=== PATIENT | male | born 1950 | race Caucasian/White ===

== ENCOUNTER → 2016-04-27 | Outpatient (CLI) | payer BC, MEDICARE ==
[2016-04-27 13:03] LABS: Basophils % (A) 1 %; CH 31.4; CHCM 34.3; Eosinophils # (A) 0.1 k/uL (0-0.7); Eosinophils % (A) 2 %; HCT 47.1 % (39.0-53.0); HDW 2.98; HGB 15.5 gm/dL (13.0-17.5); Luc # (Auto) 0.15; Luc % (Auto) 2; Lymphocytes # (A) 2.6 k/uL (1.0-4.8); Lymphocytes % (A) 37 %; MCH 30.4 pg (25.0-35.0); MCV 92.2 fL (80.0-100.0); Mean Platelet Volume 7.6; Monocytes # (A) 0.4 k/uL (0-1.0); Monocytes % (A) 5 %; Neutrophils # (A) 3.8 k/uL (1.3-7.7); Neutrophils % (A) 54 %; RBC 5.11 m/uL (4.30-5.90); RDW 14.3 % (11.5-15.5); WBC (Perox) 7.45
[2016-04-27 13:26] LABS: ALT 60 U/L (21-72); AST 38 U/L (17-59); Alkaline Phosphatase 113 U/L (38-126); Anion Gap 9 mmol/L; Blood Urea Nitrogen 25 mg/dL (9-20); Calcium 9.6 mg/dL (8.4-10.2); Carbon Dioxide 28 mmol/L (22-30); Chloride 104 mmol/L (98-107); Glucose 102 mg/dL (74-99); Non-African American GFR(MDRD) 52 (>60 ml/min/1.73 sqM); Potassium 4.3 mmol/L (3.5-5.1); Sodium 141 mmol/L (137-145); Total Bilirubin 0.6 mg/dL (0.2-1.3); Total Protein 6.8 g/dL (6.3-8.2)
== END | disposition home or self-care (01) ==
LOC: LABWHC1 12:18
PROVIDERS: ATTEND Internal Medicine
DX: R53.1 Weakness (principal); R63.5 Abnormal weight gain
CPT/HCPCS: 36415; 80053; 84439; 84443; 85025

== ENCOUNTER → 2016-05-28 | Outpatient (CLI) | payer BC, MEDICARE ==
--- NOTE | 2016-05-28 17:21 | US ---
EXAMINATION TYPE: US scrotum with doppler. Grayscale and color Doppler Duplex imaging performed of will corrigan scrotum. DATE OF EXAM: 05/28/2016 4:52 PM COMPARISON: No previous CLINICAL HISTORY: N50.819 TESTICULAR PAIN. Intermittent bilateral testicular pain x 6 months EXAM MEASUREMENTS: TESTICLES: Right Testicle: 3.0 x 2.1 x 1.7 cm, slightly heterogeneous Left Testicle: 3.2 x 1.9 x 1.6 cm, slightly heterogeneous EPIDIDYMIS HEAD: Right Epididymis: 0.7 x 1.0 x 1.0 cm Left Epididymis: 0.7 x 0.8 x1.1 cm Doppler performed to assess for testicular vascularity; good bilateral arterial color flow and wavefo ari are seen, unable to obtain venous flow within bilateral testicles. 0.6cm echogenic focus inferior to right testicle Presence of hydroceles: right 1.9cm with internal debris Presence of varicoceles: prominent vessels lateral to left testicle IMPRESSION: There is a mild right-sided hydrocele. There is a 6 mm echogenic focus in the fluid there is probably calcification. No testicular torsion or mass.
== END | disposition home or self-care (01) ==
LOC: RADUSWWP 16:06
PROVIDERS: ATTEND Family Medicine
DX: N43.3 Hydrocele, unspecified (principal)
CPT/HCPCS: 76870; 93975

== ENCOUNTER 2016-06-04 09:43 | Day surgery (SDC) | payer BC, MEDICARE ==
[2016-06-02 10:52] VITALS: BMI 33.5
[~2016-06-04 09:43] MED LIST: LACTATED RINGERS 1,000 ML IV SCH
[2016-06-04 11:03] VITALS: TEMP 97.8
[2016-06-04] MEDS ORDERED: LACTATED RINGERS 1,000 ML IV ONE (11:14)
[2016-06-04] MEDS ORDERED: LIDOCAINE 1% 20 ML VIAL (10MG/ML) FOR IV START INTRADERMA ONE (11:17)
[2016-06-04] MEDS ORDERED: PROPOFOL 10 MG/ML 20 ML VIAL IV ONE (11:21)
[2016-06-04] MEDS ORDERED: LIDOCAINE 1% INJ 10MG/ML (20 ML MDV) ONE (11:21)
--- NOTE | 2016-06-04 11:28 | P.PCN ---
Date of Procedure: 06/04/16 Procedure(s) Performed: BRIEF HISTORY: Patient is a 65-year-old, pleasant, white male, scheduled for an upper endoscopy as a part of evaluation of gastroesophageal reflux symptoms of almost 1 year duration. He has been on Prilosec 20 mg daily and since in symptoms have significantly improved. He scheduled for an upper endoscopy to rule out complicated reflux disease.. PROCEDURE PERFORMED: Esophagogastroduodenoscopy with biopsy. PREOPERATIVE DIAGNOSIS: GERD. IV sedation per anesthesia. PROCEDURE: After informed consent was obtained, the patient was brought into the endoscopy unit. IV sedation was administered by Anesthesia under continuous monitoring. Initially the Olympus GIF-140 video endoscope was inserted into the mouth. Esophagus intubated without any difficulty. It was gradually advanced into the stomach and duodenum and carefully examined. The bulb and the second part of the duodenum appeared normal. The scope at this time was withdrawn to the stomach, adequately insufflated with air, and upon careful examination, mucosa of the antrum, had mild gastritis and biopsies were done from this area. The body, cardia and the fundus appeared normal. The scope was then withdrawn into the esophagus. The GE junction was located at 41 cm from the incisors. The esophagus appeared normal. There were no erosions or ulcerations seen and the patient tolerated the procedure well. IMPRESSION: 1. Mild antral gastritis. 2. No evidence of esophagitis or Lozada's esophagus. RECOMMENDATIONS: The findings of this examination were discussed with the patient as well as his family. He was advised to follow with the biopsy results. He will continue with Prilosec 20 mg daily and follow antireflux measures.
[2016-06-04 11:51] VITALS: BP 131/88; PULSE 82; RESP 18
== END 2016-06-04 12:07 | disposition home or self-care (01) ==
LOC: ORWHC2ENDO 09:43
PROVIDERS: ATTEND Internal Medicine Gastroenterology
DX: K29.50 Unspecified chronic gastritis without bleeding (principal); K21.9 Gastro-esophageal reflux disease without esophagitis; I10 Essential (primary) hypertension; E78.5 Hyperlipidemia, unspecified; E07.9 Disorder of thyroid, unspecified; Z79.82 Long term (current) use of aspirin; Z79.899 Other long term (current) drug therapy
CPT/HCPCS: 88305; 88342; 43239; J2001; J2704

== ENCOUNTER → 2016-08-10 | Outpatient (CLI) | payer BC, MEDICARE ==
--- NOTE | 2016-08-10 17:02 | US ---
EXAMINATION TYPE: US thyroid st tissue head/neck DATE OF EXAM: 08/10/2016 COMPARISON: NONE CLINICAL HISTORY: R22.1 Swelling/Mass/Lump in Neck. GLAND SIZE: Right Lobe: 3.4 x 1.0 x 1.5 cm Overall Parenchyma: mildly heterogeneous Left Lobe: 4.0 x 1.5 x 1.4 cm Overall Parenchyma: mildly heterogeneous Isthmus Thickness: 0.3 cm NODULES RIGHT: # of nodules measured on right: 0 LEFT: # of nodules measured on left: 0 ISTHMUS: # of nodules measured in the isthmus: 0 Bilateral neck scanned, no evidence of lymphadenopathy. Anterior neck scanned where patient feels fullness in the anterior neck. IMPRESSION: Normal thyroid sonogram. No mass seen in the area of concern. No evidence of any adenopathy.
== END | disposition home or self-care (01) ==
LOC: RADUSWWP 16:12
PROVIDERS: ATTEND Family Medicine
DX: R22.1 Localized swelling, mass and lump, neck (principal)
CPT/HCPCS: 76536

== ENCOUNTER → 2016-10-29 | Day surgery (SDC) | payer BC, MEDICARE ==
[2016-10-26 15:13] VITALS: BMI 33.0
[~2016-10-29] MED LIST changes: +ALPRAZolam 0.25 MG TAB PO PRN; +ALPRAZolam 0.5 MG TAB PO PRN; +ASPIRIN 325 MG TAB PO STA; +ATORVASTATIN 80 MG TAB PO STA; +HEPARIN SODIUM 1,000 UN/ML (10ML VL) IV ONE; +HEPARIN SODIUM 1,000 UN/ML (10ML VL) ONE; +IOHEXOL 350 MG/ML 125ML BOTTLE INJ ONE; -LACTATED RINGERS 1,000 ML IV SCH; +LIDOCAINE 2% INJ 20 MG/ML (20 ML MDV) ONE; +LIDOCAINE 2% INJ 20 MG/ML SQ ONE; +MIDAZOLAM 2 MG/2 ML VIAL IV ONE; +MIDAZOLAM 2 MG/2 ML VIAL ONE; +NITROGLYCERIN SL TABS 0.4 MG TAB SUBLINGUAL PRN; +RX INFO: IV CONTRAST WAS GIVEN 1 EACH MISC MISCELLANE PRN; +SODIUM CHLORIDE 0.9% 1,000 ML IV SCH; +SODIUM CHLORIDE 0.9% 1,000 ML in EMPTY BAG 1 BAG IV ONE; +VERAPAMIL 2.5 MG/ML 2 ML AMP ONE
[2016-10-29 10:44] LABS: Basophils % (A) 1 %; CH 31.7; CHCM 35.8; Eosinophils # (A) 0.2 k/uL (0-0.7); Eosinophils % (A) 2 %; HCT 45.1 % (39.0-53.0); HGB 16.2 gm/dL (13.0-17.5); Luc # (Auto) 0.15; Luc % (Auto) 2; Lymphocytes # (A) 2.1 k/uL (1.0-4.8); Lymphocytes % (A) 32 %; MCH 32.1 pg (25.0-35.0); MCHC 35.9 g/dL (31.0-37.0); MCV 89.3 fL (80.0-100.0); Mean Platelet Volume 7.2; Monocytes # (A) 0.3 k/uL (0-1.0); Monocytes % (A) 5 %; Neutrophils # (A) 3.8 k/uL (1.3-7.7); Neutrophils % (A) 58 %; RBC 5.05 m/uL (4.30-5.90); RDW 14.1 % (11.5-15.5); WBC 6.6 k/uL (3.8-10.6); WBC (Perox) 6.54
[2016-10-29 10:46] VITALS: RESP 18; TEMP 98
[2016-10-29] MEDS: VERAPAMIL SYRINGE (5 MG/10 ML) INTRAARTER ONE ×3 (11:39→11:52)
[2016-10-29 16:56] VITALS: BP 142/85; PULSE 62
--- NOTE | 2016-10-30 10:46 | MISC ---
October 29, 2016 RE: Luther Lopez Dear Dr. 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 Maximize medical treatment is recommended and no need for any intervention at this point. I want to thank you for allowing us to participate in his care and please do not hesitate to contact me if questions or concerns. JACQUELINED
--- NOTE | 2016-10-30 10:47 | CC ---
DATE OF SERVICE: 10/29/16 PERFORMING PHYSICIAN: Ham Dykes M.D., network technician. PROCEDURE PERFORMED: 1. Selective right and left coronary angiogram. 2. Left heart catheterization. 3. Left ventriculography. INDICATIONS: This is a pleasant 66 year old gentleman who was experiencing intermittent episodes of chest discomfort concerning for angina. He has very significant family history of coronary artery disease. APPROACH: Right radial artery. COMPLICATIONS: None. LEVEL OF SEDATION: Moderate with a sedation length of 20 minutes. PROCEDURE DESCRIPTION: After obtaining informed consent, the patient was brought to the [facility]. The right radial artery was cannulated using micropuncture technique. The micropuncture wire passed easily. Then, I placed a 6 Yi sheath in the right radial artery. Subsequently I gave the patient 2 mg of Verapamil IA and 3000 units of heparin IV. I did selective right and left coronary angiogram using JR4 and JL3.5 catheters. After that I did left heart catheterization and LV gram using 5 Yi pigtail catheter. The procedure was completed without any complication. SELECTIVE CORONARY ANGIOGRAM: 1. The right coronary artery is a large caliber vessel and it is a dominant vessel. It is angiographically normal. It bifurcates into PDA and PLV branches, both are angiographically normal. 2. The left main is angiographically normal. It bifurcates into the left circumflex and left anterior descending artery. 3. The left circumflex is a large caliber vessel and it was a non-dominant vessel. The proximal circumflex is angiographically normal and gives rise into the first OM branch which seems to be angiographically normal. The mid circ is normal and gives rise into the second OM which seems to be angiographically normal and the circ continues after that as a medium caliber vessel in the AV groove. 4. The left anterior descending coronary artery: The proximal left anterior descending artery is angiographically normal. It gives rise into the first diag which seems to be angiographically normal. The mid LAD has what seems to be myocardial bridging in the mid portion just after the bifurcation of the second diag branch. The LAD distally appeared to be angiographically normal. HEMODYNAMICS: The left ventricular end diastolic pressure was 6 mmHg and no gradient was identified across the aortic valve. Left ventriculography was performed in the MAJOR projection and using a power injection the left ventricular systolic function is normal with EF about 50%. CONCLUSION: 1. Normal and dominant right coronary artery. 2. Normal left main coronary artery. 3. Normal and nondominant left circumflex coronary artery. 4. Myocardial bridging involving the mid LAD. 5. Normal left ventricular end diastolic pressure. 6. Normal left ventricular systolic function. POSTPROCEDURE MANAGEMENT: 1. Maximize medical treatment. 2. Follow-up with the patient. ERIC
== END ==
LOC: CATHCVL 09:51
PROVIDERS: ATTEND Internal Medicine Interventional Cardiology
DX: R07.89 Other chest pain (principal); Z82.49 Family history of ischemic heart disease and other diseases of the circulatory system; E78.5 Hyperlipidemia, unspecified; E03.9 Hypothyroidism, unspecified; Z87.891 Personal history of nicotine dependence; Z79.82 Long term (current) use of aspirin; Z79.899 Other long term (current) drug therapy
CPT/HCPCS: 93458; 85025; 99152; C1894; J2001; J2250; J1644; Q9967

== ENCOUNTER → 2016-12-08 | Outpatient (CLI) | payer BC, MEDICARE ==
--- NOTE | 2016-12-08 08:22 | MR ---
EXAMINATION TYPE: MR brain wo/w con DATE OF EXAM: 12/08/2016 COMPARISON: NONE HISTORY: Dizziness, memory loss CONTRAST: Performed utilizing 10 mL intravenous Gadavist gadolinium contrast. TECHNIQUE: Multiplanar, multiecho imaging on a 3.0 Saniya magnet is performed through the brain. Stud y is performed within 24 hours of arrival to the hospital. The craniovertebral junction is normal. The pituitary is normal. Diffusion-weighted imaging is performed. No abnormal hyperintensity is present to suggest an acute i ntracranial infarct or acute ischemic change. There are scattered punctate areas of hyperintensity on T2 and Inversion Recovery weighted sequences which are non-specific but can be related to microvascular ischemic changes. Ventricles and sulci are appropriate for the patient age. No abnormal enhancement is evident. IMPRESSIONS: 1. Atrophy with periventricular white matter ischemic type changes.
== END | disposition home or self-care (01) ==
LOC: RADMRIMAIN 07:03
PROVIDERS: ATTEND Otolaryngology
DX: G31.9 Degenerative disease of nervous system, unspecified (principal); I67.82 Cerebral ischemia; R90.82 White matter disease, unspecified
CPT/HCPCS: 70553; A9581

== ENCOUNTER → 2017-04-04 | Outpatient (CLI) | payer BC, MEDICARE ==
--- NOTE | 2017-04-04 08:52 | CT ---
EXAMINATION TYPE: CT iac wo con DATE OF EXAM: 04/04/2017 COMPARISON: MRI brain December 08, 2016. CT neck November 29, 2016 HISTORY: Cholesteatoma of attic right ear CT DLP: 142.70 mGycm. Automated Exposure Control for Dose Reduction was Utilized. TECHNIQUE: CT scan of internal auditory canal is performed without contrast, thin cut axial images ar e obtained, coronal reformatted images are also reviewed. FINDINGS: The external auditory canals is patent on the right. There is evidence of prior surgery on the left with soft tissue density deep aspect likely reflecting predominantly postsurgical change tho ugh increasing prominence is noted from prior neck CT current study axial image 44 versus prior study axial image 5 suggesting cerumen deposit, correlate clinically. Mastoid air cells on the left have been predominantly surgically resected. There is opacification an d sclerosis on the right redemonstrated. Suspect chronic mastoiditis or possibly acute on chronic mas toiditis. The middle ear ossicles remain nonvisualized on the left suspected surgically resected. There is surr ounding soft tissue density on the right now identified are prominent from prior neck CT. Blunting of the scutum is seen. CT findings are consistent with middle ear infection or cholesteatoma as suspect ed clinically. The cochlea and the semicircular canals are symmetric and unremarkable. Vestibular aqueduct and inte rnal carotid canal appear unremarkable. Temporomandibular joints are maintained bilaterally. Visualized paranasal sinuses are grossly clear. Visualized portion brain parenchyma is felt within normal limits. IMPRESSION: CT findings support diagnosis of right middle ear infection or cholesteatoma as detailed above.
== END | disposition home or self-care (01) ==
LOC: RADCTMAIN 07:20
PROVIDERS: ATTEND Otolaryngology Otology & Neurotology
DX: H71.01 Cholesteatoma of attic, right ear (principal)
CPT/HCPCS: 70480

== ENCOUNTER 2017-06-22 22:27 | Emergency (ER) | payer BC, MEDICARE ==
[2017-06-22 22:42] VITALS: RESP 18
[2017-06-22] MEDS ORDERED: KETOROLAC 30 MG/ML 1 ML VIAL IVP STA (23:40)
[2017-06-22] MEDS ORDERED: IPRATROPIUM-ALBUTEROL 3 ML NEB INHALATION STA (23:40)
[2017-06-22] MEDS ORDERED: methylPREDNISolone SOD SUCCI 125 MG/2 ML VIAL IV STA (23:40)
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
[2017-06-23 00:09] LABS: Basophils # (A) 0.1 k/uL (0-0.2); Basophils % (A) 1 %; Eosinophils # (A) 0.1 k/uL (0-0.7); Eosinophils % (A) 1 %; HCT 40.9 % (39.0-53.0); HGB 14.6 gm/dL (13.0-17.5); Lymphocytes # (A) 1.3 k/uL (1.0-4.8); Lymphocytes % (A) 15 %; MCH 30.9 pg (25.0-35.0); MCHC 35.7 g/dL (31.0-37.0); MCV 86.6 fL (80.0-100.0); Mean Platelet Volume 8.1; Monocytes # (A) 0.7 k/uL (0-1.0); Monocytes % (A) 8 %; Neutrophils # (A) 6.5 k/uL (1.3-7.7); Neutrophils % (A) 73 %; Platelet Count 220 k/uL (150-450); RBC 4.72 m/uL (4.30-5.90); RDW 13.3 % (11.5-15.5); WBC 8.9 k/uL (3.8-10.6)
[2017-06-23 00:14] LABS: Calcium 8.6 mg/dL (8.4-10.2); Potassium 4.1 mmol/L (3.5-5.1)
--- NOTE | 2017-06-23 00:42 | XR ---
EXAMINATION TYPE: XR chest 2V DATE OF EXAM: 06/23/2017 COMPARISON: 10/15/2016 HISTORY: Cough and congestion TECHNIQUE: Frontal and lateral views of the chest are obtained. FINDINGS: Heart and mediastinum are normal. Lungs are clear of consolidation. There is no pleural ef fusion. Bony thorax is intact. IMPRESSION: No active cardiopulmonary disease. Normal heart. No change.
[2017-06-23 00:49] VITALS: BP 137/63; PULSE 100
[2017-06-23] MEDS ORDERED: LEVOFLOXACIN 750 MG TAB PO STA (00:50)
[2017-06-23 00:56] VITALS: TEMP 99.7
== END 2017-06-23 00:56 | disposition home or self-care (01) ==
LOC: EC 22:27
DX: J18.9 Pneumonia, unspecified organism (principal); J32.9 Chronic sinusitis, unspecified; I10 Essential (primary) hypertension; I45.10 Unspecified right bundle-branch block; E07.9 Disorder of thyroid, unspecified; E78.5 Hyperlipidemia, unspecified; M19.90 Unspecified osteoarthritis, unspecified site; Z87.891 Personal history of nicotine dependence; Z79.82 Long term (current) use of aspirin; Z79.899 Other long term (current) drug therapy; Z98.890 Other specified postprocedural states
CPT/HCPCS: 36415; 94640 ×2; 93005; 80048; 85025; 87502; 71046; 99284; 96374; 96375; J2930; J1885

== ENCOUNTER → 2017-08-26 | Outpatient (CLI) | payer BC, MEDICARE ==
--- NOTE | 2017-08-26 08:12 | US ---
EXAMINATION TYPE: US duplex aorta DATE OF EXAM: 08/26/2017 COMPARISON: NONE CLINICAL HISTORY: Z13.6 Encounter for screening for cardiovascular d. Screening EXAM MEASUREMENTS: Abdominal Aorta: Proximal: 2.2 x 2.4cm Mid: 1.6 x 2.0cm Distal: 1.5 x 1.7cm Bifurcation: RT: 0.9 x 0.8cm LT: 0.9 x 0.7cm Visualized portions show calcifications. No evidence of AAA at this time within visualized portions IMPRESSION: 1. Abdominal aorta screening negative for aneurysm.
== END | disposition home or self-care (01) ==
LOC: RADUSWWP 06:50 → EEVIPCON 07:00
PROVIDERS: ATTEND Family Medicine
DX: Z13.6 Encounter for screening for cardiovascular disorders (principal)
CPT/HCPCS: 93979

== ENCOUNTER → 2017-12-03 | Outpatient (CLI) | payer BC, MEDICARE ==
[2017-12-03 10:13] LABS: Cholesterol 131 mg/dL (<200); HDL Cholesterol 39 mg/dL (40-60); LDL Cholesterol,Calculated 53 mg/dL (0-99); Triglycerides 195 mg/dL (<150)
== END | disposition home or self-care (01) ==
LOC: LABWHC1 09:17
PROVIDERS: ATTEND Nurse Practitioner Adult Health
DX: E78.5 Hyperlipidemia, unspecified (principal)
CPT/HCPCS: 36415; 80061

== ENCOUNTER 2019-01-17 16:37 | Observation (INO) | payer BC, MEDICARE ==
[2019-01-17 17:17] LABS: Basophils # (A) 0.1 k/uL (0-0.2); Basophils % (A) 1 %; Eosinophils # (A) 0.3 k/uL (0-0.7); Eosinophils % (A) 3 %; HCT 43.1 % (39.0-53.0); HGB 14.5 gm/dL (13.0-17.5); Lymphocytes # (A) 2.5 k/uL (1.0-4.8); Lymphocytes % (A) 31 %; MCH 30.4 pg (25.0-35.0); MCHC 33.6 g/dL (31.0-37.0); MCV 90.4 fL (80.0-100.0); Mean Platelet Volume 7.2; Monocytes # (A) 0.5 k/uL (0-1.0); Monocytes % (A) 6 %; Neutrophils # (A) 4.6 k/uL (1.3-7.7); Neutrophils % (A) 57 %; Platelet Count 230 k/uL (150-450); RBC 4.77 m/uL (4.30-5.90); RDW 13.6 % (11.5-15.5); WBC 8.1 k/uL (3.8-10.6)
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
[2019-01-17 17:33] LABS: Calcium 9.3 mg/dL (8.4-10.2); Magnesium 1.8 mg/dL (1.6-2.3); Potassium 4.3 mmol/L (3.5-5.1); Total Bilirubin 0.6 mg/dL (0.2-1.3); Total Protein 6.7 g/dL (6.3-8.2)
[2019-01-17 17:39] LABS: INR 0.9 (<1.2); Partial Thromboplastin Time 23.4 sec (22.0-30.0); Prothrombin Time 9.5 sec (9.0-12.0)
--- NOTE | 2019-01-17 18:15 | XR ---
EXAMINATION TYPE: XR chest 2V DATE OF EXAM: 01/17/2019 COMPARISON: 02/10/2018 HISTORY: Chest pain TECHNIQUE: Frontal and lateral views of the chest are obtained. FINDINGS: Heart and mediastinum are normal. Lungs are clear. Diaphragm is normal. Bony thorax is inta ct. There are chest leads. IMPRESSION: No active cardiopulmonary disease. Normal heart. No change.
[2019-01-17] MEDS ORDERED: ASPIRIN 325 MG TAB PO STA (18:46)
[2019-01-17] MEDS ORDERED: MORPHINE SULFATE 2 MG/ML SYRINGE IVP STA (18:47)
[2019-01-17] MEDS ORDERED: ONDANSETRON 4 MG/2 ML VIAL IVP PRN (22:00)
[2019-01-17] MEDS ORDERED: MORPHINE SULFATE 4 MG/ML SYRINGE IV PRN (22:00)
[2019-01-17] MEDS ORDERED: NALOXONE 0.4 MG/ML 1 ML VIAL IV PRN (22:00)
[2019-01-17 22:39] VITALS: RESP 18
[2019-01-18] MEDS ORDERED: ATORVASTATIN 20 MG TAB PO SCH (00:15)
[2019-01-18 06:41] LABS: Glucose,Whole Blood 113 mg/dL (75-99)
[2019-01-18] MEDS ORDERED: MAG HYDROX/AL HYDROX/SIMETH 30 ML, HYOSCYAMINE ELIXIR 10 ML, LIDOCAINE VISCOUS 2% 10 ML PO ONE ×3 (09:00)
[2019-01-18] MEDS ORDERED: ASPIRIN 325 MG TAB PO SCH (09:00)
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
[2019-01-18 11:03] VITALS: BP 129/83; PULSE 69; TEMP 97.5
[2019-01-18] MEDS ORDERED: metFORMIN 500 MG TAB PO SCH (11:30)
[2019-01-18] MEDS ORDERED: MULTIVITAMINS, THERA 1 EACH TAB PO SCH (11:30)
[2019-01-18] MEDS ORDERED: LEVOTHYROXINE 50 MCG TAB PO SCH (11:30)
[2019-01-18 11:40] LABS: Glucose,Whole Blood 94 mg/dL (75-99)
[2019-01-18] MEDS ORDERED: ACETAMINOPHEN TAB 325 MG TAB PO PRN (12:00)
--- NOTE | 2019-01-18 12:09 | ECHOF ---
Referral Reason:cp MEASUREMENTS -------- HEIGHT: 162.6 cm WEIGHT: 98.4 kg BP: 121/74 IVSd: 1.2 cm (0.6 - 1.1) LVIDd: 4.4 cm (3.9 - 5.3) LVPWd: 1.0 cm (0.6 - 1.1) IVSs: 1.3 cm LVIDs: 3.8 cm LVPWs: 1.2 cm LA Diam: 3.4 cm (2.7 - 3.8) LAESV Index (A-L): 14.51 ml/m Ao Diam: 3.7 cm (2.0 - 3.7) EPSS: 0.5 cm MV E Reji: 0.53 m/s MV DecT: 212 ms MV A Reji: 0.73 m/s MV E/A Ratio: 0.73 RAP: 5.00 mmHg RVSP: 13.38 mmHg MV EF SLOPE: 85.72 mm/s (70 - 150) MV EXCURSION: 13.88 mm (> 18.000) FINDINGS -------- Sinus rhythm. This was a technically good study. LV size, wall thickness and systolic function are normal, with an EF greater than 55%. The left elle tricular size is normal. The right ventricle is normal in size. The left atrial size is normal. Normal LA size by volume 22+/-6 ml/m2. The right atrial size is normal. The aortic valve is trileaflet, and appears structurally normal. No aortic stenosis or regurgitation. Mild mitral annular calcification present. Mild mitral regurgitation is present. No regurgitation noted Right ventricular systolic pressure is normal at < 35 mmHg. There is no ev idence of pulmonary hypertension. There is no pulmonic regurgitation present. The aortic root size is normal. There is no pericardial effusion. CONCLUSIONS -------- 1. Sinus rhythm. 2. This was a technically good study. 3. LV size, wall thickness and systolic function are normal, with an EF greater than 55%. 4. The left ventricular size is normal. 5. The right ventricle is normal in size. 6. The left atrial size is normal. 7. Normal LA size by volume 22+/-6 ml/m2. 8. The right atrial size is normal. 9. The aortic valve is trileaflet, and appears structurally normal. No aortic stenosis or regurgitati on. 10. Mild mitral annular calcification present. 11. Mild mitral regurgitation is present. 12. No regurgitation noted 13. Right ventricular systolic pressure is normal at < 35 mmHg. 14. There is no evidence of pulmonary hypertension. 15. There is no pulmonic regurgitation present. 16. The aortic root size is normal. 17. There is no pericardial effusion. PATIENT FINANCIAL SERVICES MANAGER: Kassie Rob RDCS
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
[2019-01-19] MEDS ORDERED: ASPIRIN 81 MG PO SCH (09:00)
--- NOTE | 2019-01-19 20:02 | P.DS ---
Providers Date of admission: 01/17/19 22:02 Expected date of discharge: 01/18/19 Attending physician: Ganga Porter Consults: 01/17/19 22:00 Consult Physician Routine Consulting Provider: Ham Dykes Consult Reason/Comments: CP Do you want consulting provider notified?: Yes Primary care physician: Mega Ba [facility] Course: Chief Complaint: Chest Pain History of presenting complaint: This is a 68-year-old patient of Dr. Mega Ba. Chronic stable medical conditions include GERD, hyperlipidemia, osteoarthritis, BPH, hypothyroid. Patient is also had several left ear surgeries including particular graft from his left arm to make her left eardrum. 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 For last 2 days patient been having constant left anterior chest wall pain pressure. She decided to go to work. 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 Since the pain persisted he decided to come into the ER. There is some discomfort in the left arm 2. Does slight dizziness. No perspiration. No shortness of breath. No calf pain or swelling. No prior cardiac history.recent cardiac catheterization was normal with nonobstructive disease. patient chest pain was felt musculoskeletal. consultation: Dr. Jd Armando from cardiology Physical examination: VITAL SIGNS:97.5, 69, 18, 129/83, 98% room air GENERAL:sitting up comfortable]. EYES: Pupils equal. Conjunctiva normal. HEENT: External appearance of nose and ears normal, oral cavity grossly normal hearing aids. NECK: JVD not raised; masses not palpable. HEART: First and second heart sounds are normal; no edema. LUNGS:[ Respiratory rate normal; slightly decreased breath sound. ABDOMEN: Soft, nontender, liver spleen not palpable, no masses palpable. PSYCH: Alert and oriented x3; mood and affect normal. MUSCULAR skeletal: Some reproducible pain in the left anterior chest wall near the costochondral junction INVESTIGATIONS, reviewed in the clinical context: White count 8.1 hemoglobin 14.5 platelets 2:30 progression 4.3 crit 1.2 to Troponin I 3 negative proBNP 51 EKG tracing personally reviewed by me-normal sinus rhythm Chest x-ray film personally reviewed by me-borderline cardiomegaly, lung bowers clear (2-D echo-EF greater than 55%. Assessment: -Left anterior chest wall, pain Most likely costochondral pain. Recent cardiac catheterization showing nonobstructive disease. -GERD -Hyperlipidemia -Primary osteoarthritis -BPH -Hypothyroid -Hearing disorder disposition: Home Patient Condition at Discharge: Stable Plan - Discharge Summary New Discharge Prescriptions: Continue Multivitamin [Men's Multi-Vitamin] 1 tab PO DAILY Omeprazole 40 mg PO DAILY Levothyroxine Sodium [Synthroid] 50 mcg PO DAILY Atorvastatin [Lipitor] 20 mg PO HS Aspirin [Adult Low Dose Aspirin EC] 81 mg PO DAILY metFORMIN HCL [Glucophage] 500 mg PO BID Discharge Medication List Multivitamin [Men's Multi-Vitamin] 1 tab PO DAILY 04/11/15 [History] Omeprazole 40 mg PO DAILY 06/02/16 [History] Levothyroxine Sodium [Synthroid] 50 mcg PO DAILY 06/04/16 [History] Aspirin [Adult Low Dose Aspirin EC] 81 mg PO DAILY 10/26/16 [History] Atorvastatin [Lipitor] 20 mg PO HS 10/26/16 [History] metFORMIN HCL [Glucophage] 500 mg PO BID 01/17/19 [History] Follow up Appointment(s)/Referral(s): Ham Dykes MD [STAFF PHYSICIAN] - 01/24/19 3:45 pm Mega Ba MD [Primary Care Provider] - 01/25/19 10:15 am Patient Instructions/Handouts: Chest Pain (DC) Activity/Diet/Wound Care/Special Instructions: Return to work 01/19/19 with no restrictions. Discharge Disposition: HOME SELF-CARE
== END 2019-01-18 14:41 | disposition home or self-care (01) ==
LOC: EC 16:37 → 1SOBS 22:02
PROVIDERS: ADMIT Hospitalist; ATTEND Hospitalist
DX: R07.89 Other chest pain (principal); R07.2 Precordial pain; R05 Cough; K21.9 Gastro-esophageal reflux disease without esophagitis; E78.5 Hyperlipidemia, unspecified; M19.91 Primary osteoarthritis, unspecified site; E11.9 Type 2 diabetes mellitus without complications; N40.0 Benign prostatic hyperplasia without lower urinary tract symptoms; E03.9 Hypothyroidism, unspecified; H91.90 Unspecified hearing loss, unspecified ear; Z94.89 Other transplanted organ and tissue status; Z87.891 Personal history of nicotine dependence; Z87.01 Personal history of pneumonia (recurrent); Z87.828 Personal history of other (healed) physical injury and trauma; E66.9 Obesity, unspecified; Z68.30 Body mass index [BMI] 30.0-30.9, adult; Z79.890 Hormone replacement therapy; Z79.82 Long term (current) use of aspirin; Z79.899 Other long term (current) drug therapy; Z79.84 Long term (current) use of oral hypoglycemic drugs; Z82.49 Family history of ischemic heart disease and other diseases of the circulatory system; Z83.3 Family history of diabetes mellitus; Z80.9 Family history of malignant neoplasm, unspecified
CPT/HCPCS: 93005 ×2; 96374; 99285; 36415; 93306; 83880; 80053; 83690; 83735; 84484 ×2; 85025; 85610; 85730; 71046; G0378 ×2; J2270

== ENCOUNTER → 2019-12-31 | Outpatient (CLI) | payer BC, MEDICARE ==
--- NOTE | 2019-12-31 17:02 | US ---
EXAMINATION TYPE: US kidneys/renal and bladder DATE OF EXAM: 12/31/2019 COMPARISON: NONE CLINICAL HISTORY: 69-year-old male R31.9 Hematuria. Pt states on/off gross hematuria, blood in semen as well TECHNIQUE: Multiple sonographic images of the kidneys and bladder are obtained. FINDINGS: EXAM MEASUREMENTS: Right Kidney: 10.8 x 5.1 x 5.4 cm Left Kidney: 9.5 x 5.2 x 5.3 cm Right Kidney: Appeared wnl Left Kidney: Appeared wnl Bladder: wnl Bilateral Jets seen: Yes Normal Post Void Residual: Yes, 28 ml IMPRESSION: 1. No hydronephrosis. 2. Postvoid bladder volumes increased at 28 mL but still falls within acceptable limits (<50 mL).
== END | disposition home or self-care (01) ==
LOC: RADUSWWP 13:13
PROVIDERS: ATTEND Nurse Practitioner Adult Health
DX: R31.9 Hematuria, unspecified (principal)
CPT/HCPCS: 76770

== ENCOUNTER 2020-04-07 10:48 | Day surgery (SDC) | payer BC, MEDICARE ==
[2020-04-02 15:55] VITALS: BMI 31.4
[~2020-04-07 10:48] MED LIST changes: -HEPARIN SODIUM 1,000 UN/ML (10ML VL) IV ONE; -HEPARIN SODIUM 1,000 UN/ML (10ML VL) ONE; +HEPARIN SODIUM,PORCINE 10,000 UNIT in SODIUM CHLORIDE 0.9% 1,000 ML IRRIGATION PRN; +HEPARIN SODIUM,PORCINE 2,500 UNIT in SODIUM CHLORIDE 0.9% 250 ML IRRIGATION PRN; -IOHEXOL 350 MG/ML 125ML BOTTLE INJ ONE; -LIDOCAINE 2% INJ 20 MG/ML (20 ML MDV) ONE; -LIDOCAINE 2% INJ 20 MG/ML SQ ONE; -MIDAZOLAM 2 MG/2 ML VIAL IV ONE; -MIDAZOLAM 2 MG/2 ML VIAL ONE; -RX INFO: IV CONTRAST WAS GIVEN 1 EACH MISC MISCELLANE PRN; -SODIUM CHLORIDE 0.9% 1,000 ML IV SCH; -VERAPAMIL 2.5 MG/ML 2 ML AMP ONE
[2020-04-07 11:11] LABS: Glucose,Whole Blood 100 mg/dL (75-99)
[2020-04-07 11:16] VITALS: TEMP 98.3
[2020-04-07 11:36] LABS: Basophils # (A) 0.1 k/uL (0-0.2); Basophils % (A) 1 %; Eosinophils # (A) 0.2 k/uL (0-0.7); Eosinophils % (A) 2 %; HGB 15.7 gm/dL (13.0-17.5); Lymphocytes # (A) 2.7 k/uL (1.0-4.8); Lymphocytes % (A) 35 %; MCHC 34.8 g/dL (31.0-37.0); MCV 89.2 fL (80.0-100.0); Mean Platelet Volume 7.8; Monocytes # (A) 0.3 k/uL (0-1.0); Monocytes % (A) 4 %; Neutrophils # (A) 4.3 k/uL (1.3-7.7); Neutrophils % (A) 56 %; Platelet Count 204 k/uL (150-450); RBC 5.05 m/uL (4.30-5.90); RDW 13.6 % (11.5-15.5); WBC 7.6 k/uL (3.8-10.6)
[2020-04-07 11:37] LABS: Calcium 9.4 mg/dL (8.4-10.2); Potassium 4.4 mmol/L (3.5-5.1)
[2020-04-07] MEDS ORDERED: VERAPAMIL 2.5 MG/ML 2 ML AMP ONE (11:45)
[2020-04-07] MEDS ORDERED: LIDOCAINE 1% INJ 10MG/ML (20 ML MDV) ONE (11:46)
[2020-04-07] MEDS ORDERED: MIDAZOLAM 2 MG/2 ML VIAL IVP ONE (12:08)
[2020-04-07] MEDS ORDERED: LIDOCAINE 1% INJ 10MG/ML (20 ML MDV) SQ ONE (12:08)
[2020-04-07] MEDS ORDERED: HEPARIN SODIUM 1,000 UN/ML (10ML VL) ONE (12:09)
[2020-04-07] MEDS ORDERED: HEPARIN SODIUM 1,000 UN/ML (10ML VL) IV ONE (12:10)
[2020-04-07] MEDS ORDERED: VERAPAMIL SYRINGE (5 MG/10 ML) INTRAARTER ONE ×2 (12:10→12:15)
[2020-04-07] MEDS ORDERED: IOPAMIDOL-370 125ML BTL INJ ONE (12:17)
[2020-04-07] MEDS ORDERED: RX INFO: IV CONTRAST WAS GIVEN 1 EACH MISC MISCELLANE PRN (12:23)
[2020-04-07] MEDS ORDERED: SODIUM CHLORIDE 0.9% 1,000 ML IV SCH (12:30)
--- NOTE | 2020-04-07 12:55 | CC ---
CARDIAC CATHETERIZATION REPORT DATE OF SERVICE: April 07, 2020 PERFORMING PHYSICIAN: Ham Dykes MD. PROCEDURE PERFORMED: 1. Selective right and left coronary angiogram. 2. Left heart catheterization. INDICATION: This is a 69-year-old gentleman with hypertension and dyslipidemia who was experiencing symptoms of chest discomfort and underwent myocardial perfusion imaging stress test and that revealed an anterior ischemia and because of that, a heart catheterization was advised. APPROACH: Right radial artery. COMPLICATION: None. LEVEL OF SEDATION: Moderate with sedation length of 14 minutes. PROCEDURE DESCRIPTION: After obtaining an informed consent, the patient was brought to the cardiac process laboratory specialist. The right radial artery was cannulated using micropuncture technique, the micropuncture wire passed easily then I placed a 6-Armenian sheath at the right radial artery. I did give the patient 2 mg of verapamil IA and 10,000 units of heparin IV. Selective right and left coronary angiogram performed with JR4 and JL3.5 catheters. Left heart catheterization was performed using the JR4 catheter which crossed the aortic valve then I did pullback across the valve. The procedure was completed without any complication. SELECTIVE CORONARY ANGIOGRAM: 1. The right coronary artery is a large caliber vessel. It is a dominant vessel and appeared to be angiographically normal. Distally bifurcates into PDA and PLV branches, both appeared to be angiographically normal. 2. The left main is angiographically normal. It bifurcates into LCX and LAD. 3. The LCX is a large caliber vessel. It is a nondominant vessel. The LCX is angiographically normal. In the proximal portion, it gives rise into a large OM branch which appeared to be angiographically normal. 4. The LAD: The proximal LAD appeared to be angiographically normal. The mid LAD has mild disease only and the LAD by the apex has a lesion appeared to be in the range of 60%. The LAD gives rise into first and second diagonal branches, both appear to be angiographically normal. HEMODYNAMICS: The LVEDP was about 4-6 mmHg without significant gradient across aortic valve. CONCLUSION: 1. Mild to moderate nonobstructive coronary artery disease. 2. Normal LVEDP. POSTPROCEDURE MANAGEMENT: 1. Medical treatment. 2. Follow up with the patient. MMODL / IJN: [id number] /
[2020-04-07 15:32] VITALS: BP 144/98; PULSE 75; RESP 18
== END 2020-04-07 17:40 | disposition home or self-care (01) ==
LOC: CATHCVL 10:48
PROVIDERS: ATTEND Internal Medicine Interventional Cardiology
DX: I25.110 Atherosclerotic heart disease of native coronary artery with unstable angina pectoris (principal); R94.39 Abnormal result of other cardiovascular function study; R07.89 Other chest pain; I10 Essential (primary) hypertension; E78.5 Hyperlipidemia, unspecified; E03.9 Hypothyroidism, unspecified; E78.00 Pure hypercholesterolemia, unspecified; E11.9 Type 2 diabetes mellitus without complications; I65.23 Occlusion and stenosis of bilateral carotid arteries; Z79.82 Long term (current) use of aspirin; Z79.899 Other long term (current) drug therapy; Z79.890 Hormone replacement therapy; Z79.84 Long term (current) use of oral hypoglycemic drugs; Z87.891 Personal history of nicotine dependence; Z82.49 Family history of ischemic heart disease and other diseases of the circulatory system
CPT/HCPCS: 93458; 80048; 85025; C1769; C1894; J2250; J2001; J1644; Q9967

== ENCOUNTER → 2020-04-21 | Outpatient (CLI) | payer BC, MEDICARE ==
--- NOTE | 2020-04-22 12:44 | US ---
EXAMINATION TYPE: US prostate transrectal DATE OF EXAM: 04/21/2020 COMPARISON: NONE CLINICAL HISTORY: N40.0 BPH elevated. No rectal exam done at office, nocturia, hematuria when startin g to void then stops. This examination was performed using the transrectal probe. EXAM MEASUREMENTS: Gland Size: 3.5 x 4.3 x 2.9cm Volume: 22.5ml Predicted PSA: 2.7 Actual PSA (if available):0.5 Calcified central zone, normal appearing gland size. Hypoechoic area noted within peripheral zone ne ar apex = 0.9 x 0.6 x 0.4cm, no increased vascularity seen. IMPRESSION: 1. There is a 0.9 x 0.6 x 0.4 cm hypoechoic area in the left peripheral zone. Additional workup for p ossible prostate cancer is recommended Predicted PSA = volume x 0.12 ng/ml Calculated Volume = 0.5236 x L x W x H
== END | disposition home or self-care (01) ==
LOC: RADUSWWP 10:11 → EEVIPCON 04-28 09:00
PROVIDERS: ATTEND Family Medicine
DX: R93.89 Abnormal findings on diagnostic imaging of other specified body structures (principal)
CPT/HCPCS: 76872

== ENCOUNTER 2023-02-28 12:49 | Emergency (ER) | payer MEDICARE ==
[2023-02-28 13:00] VITALS: BP 135/88; PULSE 88; RESP 16; TEMP 97.7
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
--- NOTE | 2023-02-28 15:05 | XR ---
EXAMINATION TYPE: XR chest 2V DATE OF EXAM: 02/28/2023 COMPARISON: 08/24/2021 HISTORY: 72-year-old male with difficulty breathing, shortness of breath TECHNIQUE: PA and lateral views FINDINGS: The cardiomediastinal silhouette, aorta, and pulmonary vasculature are within normal limits. Left-jah ed nipple shadow. Otherwise, lungs and pleural spaces are clear. IMPRESSION: No acute cardiopulmonary process.
== END 2023-02-28 15:18 | disposition home or self-care (01) ==
LOC: EC 12:49
DX: J11.1 Influenza due to unidentified influenza virus with other respiratory manifestations (principal); K21.9 Gastro-esophageal reflux disease without esophagitis; E78.5 Hyperlipidemia, unspecified; M19.90 Unspecified osteoarthritis, unspecified site; E07.9 Disorder of thyroid, unspecified; Z87.891 Personal history of nicotine dependence; Z79.890 Hormone replacement therapy; Z79.1 Long term (current) use of non-steroidal anti-inflammatories (NSAID); Z79.82 Long term (current) use of aspirin; Z79.84 Long term (current) use of oral hypoglycemic drugs; Z79.899 Other long term (current) drug therapy; Z20.822 Contact with and (suspected) exposure to COVID-19
CPT/HCPCS: 71046; 87636; 99283

== ENCOUNTER 2023-08-07 11:10 | Emergency (ER) | payer MEDICARE ==
--- NOTE | 2023-08-07 11:39 | XR ---
EXAMINATION TYPE: XR chest 2V DATE OF EXAM: 08/07/2023 COMPARISON: 02/28/2023 HISTORY: Cough TECHNIQUE: Frontal and lateral views of the chest are obtained. FINDINGS: There is a subtle small infiltrate in the left lingula suspicious for developing pneumonia. There is no pleural effusion or pneumothorax. The heart and pulmonary vasculature are normal. The osseous structures are intact. IMPRESSION: Possible pneumonia developing in the lingula. Short-term follow-up is recommended.
[2023-08-07 11:45] VITALS: RESP 18
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
[2023-08-07 14:58] VITALS: BP 142/77; PULSE 81; TEMP 98.9
== END 2023-08-07 14:39 | disposition home or self-care (01) ==
LOC: EC 11:10
DX: H66.91 Otitis media, unspecified, right ear (principal); Z87.891 Personal history of nicotine dependence
CPT/HCPCS: 71046; 87636; 99283

== ENCOUNTER → 2023-08-23 | Outpatient (CLI) | payer MEDICARE ==
[2023-08-23 11:19] LABS: Basophils # (A) 0.1 k/uL (0-0.2); Basophils % (A) 1 %; Eosinophils # (A) 0.2 k/uL (0-0.7); Eosinophils % (A) 2 %; HCT 43.6 % (39.0-53.0); Lymphocytes # (A) 2.6 k/uL (1.0-4.8); Lymphocytes % (A) 35 %; MCH 30.3 pg (25.0-35.0); MCHC 32.2 g/dL (31.0-37.0); MCV 94.3 fL (80.0-100.0); Mean Platelet Volume 8.2; Monocytes # (A) 0.4 k/uL (0-1.0); Monocytes % (A) 6 %; Neutrophils # (A) 3.9 k/uL (1.3-7.7); Neutrophils % (A) 54 %; Platelet Count 408 k/uL (150-450); RBC 4.63 m/uL (4.30-5.90); WBC 7.3 k/uL (3.8-10.6)
--- NOTE | 2023-08-23 12:22 | CT ---
EXAMINATION TYPE: CT abdomen pelvis wo con DATE OF EXAM: 08/23/2023 COMPARISON: 06/19/2021 HISTORY: LLQ pain CT DLP: 1169 mGycm Examination of the solid and hollow viscera is limited given the lack of contrast. FINDINGS: LUNG BASES: No evidence for nodule. No evidence for infiltrate. Multiple nodular densities seen at th e lung bases. The nonemergent CT of the chest is recommended for further evaluation. LIVER/GB: The gallbladder is unremarkable. No space-occupying hepatic lesion. PANCREAS: No pancreatic mass identified. No inflammatory process seen. SPLEEN: No evidence for splenomegaly. No intrasplenic lesions seen. ADRENALS: No adrenal nodules identified. No evidence for thickening. KIDNEYS: No evidence for renal mass. No nephrolithiasis. No hydronephrosis. BOWEL: Appendix has a normal appearance. No evidence of bowel obstruction. No inflammatory process. M ild fecal stasis. Lymph nodes: No evidence for adenopathy greater than 1 cm. Abdominal aorta: Atheromatous changes seen. No evidence for aneurysm. Genital organs: No significant abnormality. Other: Degenerative changes lumbar spine. IMPRESSION: 1. No acute process seen to account for the patient's symptoms.
[2023-08-23 14:38] LABS: ALT 33 U/L (10-49); AST 32 U/L (14-35); Albumin 4.1 g/dL (3.8-4.9); Albumin/Globulin Ratio 1.78 Ratio (1.60-3.17); Alkaline Phosphatase 115 U/L (41-126); BUN/Creat Ratio 17.62 Ratio (12.00-20.00); Blood Urea Nitrogen 22.9 mg/dL (9.0-27.0); Calcium 9.9 mg/dL (8.7-10.3); Carbon Dioxide 25.1 mmol/L (21.6-31.8); Chloride 101 mmol/L (96-109); Globulin 2.3 g/dL (1.6-3.3); Glucose 118 mg/dL (70-110); Sodium 139 mmol/L (135-145); Total Bilirubin 0.5 mg/dL (0.3-1.2); Total Protein 6.4 g/dL (6.2-8.2)
== END | disposition home or self-care (01) ==
LOC: RADCTMAIN 09:58
PROVIDERS: ATTEND Family Medicine
DX: R10.32 Left lower quadrant pain (principal); J18.9 Pneumonia, unspecified organism
CPT/HCPCS: 36415; 74176; 80053; 85025; 86738

== ENCOUNTER → 2023-08-26 | Outpatient (CLI) | payer MEDICARE ==
--- NOTE | 2023-08-26 16:56 | CT ---
EXAMINATION TYPE: CT chest wo con DATE OF EXAM: 08/26/2023 COMPARISON: 516 HISTORY: cough CT DLP: 486.[address] of the chest was performed with lung and mediastinal window settings submitted. The la ck of contrast limits evaluation of the vascular, mediastinal and parenchymal structures including th e upper abdomen. LUNGS: Multiple scattered pulmonary nodules identified measuring up to 2.7 cm some of which demonstra te a more infiltrate-like appearance. While the findings may reflect postinflammatory/inflammatory ch tyrell underlying metastatic disease is not excluded. Strict clinical correlation is advised as well as appropriate therapeutic intervention short-term follow-up in 8-12 weeks. If abnormalities persist PE T/CT is recommended to exclude malignancy. No evidence of pleural effusion or volume loss. MEDIASTINUM/ALEJANDRINA: Thoracic aorta is of normal caliber with limited evaluation given lack of contrast . The heart is not enlarged. No evidence for mediastinal mass. No lymph nodes greater than 1cm. UPPER ABDOMEN: No significant abnormality is seen. OTHER: No significant other abnormality. IMPRESSION: 1. Findings may reflect postinflammatory/inflammatory change however underlying metastatic disease i s not excluded. Strict clinical correlation is advised as well as appropriate therapeutic interventio n with short-term follow-up in 8-12 weeks. If abnormalities persist PET/CT is recommended to exclude malignancy.
== END | disposition home or self-care (01) ==
LOC: RADCTMAIN 15:38
PROVIDERS: ATTEND Family Medicine
DX: R91.8 Other nonspecific abnormal finding of lung field (principal)
CPT/HCPCS: 71250

== ENCOUNTER → 2023-09-02 | Outpatient (CLI) | payer MEDICARE ==
--- NOTE | 2023-09-04 16:39 | PE ---
EXAMINATION TYPE: PET CT fusion skull to thigh DATE OF EXAM: 09/02/2023 CLINICAL INDICATION:Male, 73 years old with history of R91.8 ABNORMAL FINDING IN LUNG FIELD; TECHNIQUE: Following the intravenous administration of 12.17 mCi of F-18 FDG, whole body images are performed from the skull base to the midthigh. Images are reviewed on the computer in the coronal, axial, and sagittal planes. Reconstructed rotating images are created on independent workstation and reviewed on the computer. A non-contrast CT is performed in conjunction with the PET scan. Glucose level 98 mg/dL CT DLP: 746 mGycm, Automated exposure control for dose reduction was used. COMPARISON: CT 08/26/2023, 08/23/2023., PET/CT None, MRI: None FINDINGS: Mediastinal SUV mean is 2.3. Hepatic parenchyma SUV mean is 2.8. SKULL BASE AND NECK: No suspicious radiotracer activity. CHEST, MEDIASTINUM, AND HILAR REGION: Scattered abnormal parenchymal densities which are not exactly nodule-like. These all have mild uptak e. Including examples right posterior upper lung max SUV 2.4. Left posterior upper lung max SUV 3.0. Posterior left lower lung max SUV 2.6. No lymphadenopathy identified. ABDOMEN AND PELVIS: No suspicious radiotracer activity. MUSCULOSKELETAL STRUCTURES: No suspicious radiotracer activity. Uptake within the right shoulder gird le compatible with muscle strain/use max SUV 4.8. Uptake within the superior endplate of L3 max SUV [address]: Atherosclerosis course of the arterial vasculature including the coronary arteries. Hepatic steatosis. Colonic diverticulosis. Fat-containing umbilical hernia. IMPRESSION: 1. Scattered parenchymal densities throughout the lung with mild uptake suspicious for infectious/in flammatory process given [id number] morphology of the lesions. Uptake near background levels. Atte ntion surveillance imaging with CT in 3 months.. No lymphadenopathy or other areas of abnormal uptake . 2. Uptake within the superior endplate of L3 possibly related to acute Schmorl's node. Consider MRI imaging of the lumbar spine. Correlate with back pain.
== END | disposition home or self-care (01) ==
LOC: RADPETMAIN 12:42
PROVIDERS: ATTEND Family Medicine
DX: R91.8 Other nonspecific abnormal finding of lung field (principal); J98.4 Other disorders of lung
CPT/HCPCS: 78815; A9552

== ENCOUNTER → 2023-09-05 | Outpatient (CLI) | payer MEDICARE ==
--- NOTE | 2023-09-05 12:03 | FL ---
COMPARISON: NONE DATE OF EXAM: 09/05/2023 HISTORY: Dysphasia A number of thin and thick substances were ingested under the care of the department of speech pathol ogy. There is no evidence of aspiration or penetration. There is no evidence of obstruction. DAP are not provided. 1 minute 12 seconds of fluoroscopy. IMPRESSION: 1. No evidence of aspiration or penetration.
== END | disposition home or self-care (01) ==
LOC: RADFLMAIN 11:21
PROVIDERS: ATTEND Internal Medicine
DX: R13.10 Dysphagia, unspecified (principal)
CPT/HCPCS: 74230

== ENCOUNTER 2023-12-07 11:45 | Day surgery (SDC) | payer MEDICARE ==
[2023-12-06 10:48] VITALS: BMI 31.1
[~2023-12-07 11:45] MED LIST changes: -ALPRAZolam 0.25 MG TAB PO PRN; -ALPRAZolam 0.5 MG TAB PO PRN; -ASPIRIN 325 MG TAB PO STA; -ATORVASTATIN 80 MG TAB PO STA; -HEPARIN SODIUM,PORCINE 10,000 UNIT in SODIUM CHLORIDE 0.9% 1,000 ML IRRIGATION PRN; -HEPARIN SODIUM,PORCINE 2,500 UNIT in SODIUM CHLORIDE 0.9% 250 ML IRRIGATION PRN; +LACTATED RINGERS 1,000 ML IV SCH; -NITROGLYCERIN SL TABS 0.4 MG TAB SUBLINGUAL PRN; -SODIUM CHLORIDE 0.9% 1,000 ML in EMPTY BAG 1 BAG IV ONE
[2023-12-07] MEDS: IV FLUID CONTINUATION 1,000 ML IV ONE (12:07)
[2023-12-07] MEDS ORDERED: fentaNYL (PF) 50 MCG/ML 2 ML AMP ONE (12:36)
[2023-12-07] MEDS ORDERED: KETAMINE HCL IN 0.9 % NACL 50 MG/5 ML SYRINGE ONE (12:36)
[2023-12-07] MEDS ORDERED: PROPOFOL 10 MG/ML 20 ML VIAL IV ONE (12:36)
[2023-12-07] MEDS ORDERED: LIDOCAINE 1% INJ 10MG/ML (20 ML MDV) ONE (12:36)
[2023-12-07] MEDS ORDERED: MIDAZOLAM 2 MG/2 ML VIAL ONE (12:36)
[2023-12-07 12:38] VITALS: RESP 16; TEMP 98
[2023-12-07 12:51] LABS: Glucose,Whole Blood 123 mg/dL (70-110)
--- NOTE | 2023-12-07 13:25 | OP ---
OPERATIVE REPORT DATE OF SERVICE : PROCEDURES PERFORMED: Bronchoscopy and random bronchoalveolar lavage of the airways bilaterally. PREOPERATIVE DIAGNOSIS: Recurrent pneumonia. POSTOPERATIVE DIAGNOSIS: Recurrent pneumonia. ANESTHESIA USED: IV conscious sedation. DESCRIPTION OF PROCEDURE: The patient was brought into the bronchoscopy suite, he was already prepared according to the bronchoscopy protocol. O2 was applied via nasal cannula and we can monitor his O2 saturation continuously, blood pressure was intermittently monitored, cardiac rhythm was continuously monitored. After adequate IV conscious sedation, the bronchoscope was advanced through the bite block into the upper airways, vocal cords were visualized to be normal. Lidocaine applied over the vocal cords, the bronchoscope was advanced further down to the airways. Thorough examination was done of the trachea, monica, right upper lobe, right middle lobe, right lower lobe, left upper lobe, lingula, and left lower lobe. There was no evidence of any endobronchial tumors, there was no evidence of any purulent secretions in the airways. Then, random bronchoalveolar lavage was done of the lingula, left lower lobe, left upper lobe, right upper lobe, right middle lobe, and right lower lobe. Lavage fluid was sent for different diagnostic studies. Procedure was well tolerated, no complications. MMODL / IJN: [id number] /
[2023-12-07 14:17] VITALS: BP 138/88; PULSE 76
[2023-12-08 04:59] LABS: Appearance,BF Slightly Cloudy (Clear); RBC, Body Fluid 1220 /UL (0-2000)
[2023-12-08 09:32] LABS: Nucleated Cells, Body Fluid 25 /UL
== END 2023-12-07 14:28 | disposition home or self-care (01) ==
LOC: ORWHC2ENDO 11:45
PROVIDERS: ATTEND Internal Medicine
DX: R91.8 Other nonspecific abnormal finding of lung field
CPT/HCPCS: 31624; 87070; 87102; 87116; 87205; 87206; 88108; 88305; 89050

== ENCOUNTER → 2024-07-03 | Day surgery (SDC) | payer MEDICARE ==
[2024-06-29 11:35] VITALS: BMI 29.2
[~2024-07-03] MED LIST changes: -LACTATED RINGERS 1,000 ML IV SCH; +LIDOCAINE 1% (10MG/ML) FOR IV START INTRADERMA PRN; +LIDOCAINE 2% (PF) 20 MG/ML 5 ML VIAL ONE; +PROPOFOL 10 MG/ML 20 ML VIAL IV ONE
[2024-07-03 11:39] VITALS: RESP 16; TEMP 98.7
[2024-07-03] MEDS: IV FLUID CONTINUATION 1,000 ML IV ONE ×2 (11:39→12:18)
[2024-07-03] MEDS: LACTATED RINGERS 1,000 ML IV SCH (11:40)
[2024-07-03 11:43] LABS: Glucose,Whole Blood 107 mg/dL (70-110)
--- NOTE | 2024-07-03 12:28 | P.PCN ---
Date of Procedure: 07/03/24 Procedure(s) Performed: BRIEF HISTORY: Patient is a 74-year-old, pleasant, white male scheduled for an upper endoscopy as a part evaluation of longstanding history of GERD.. PROCEDURE PERFORMED: Esophagogastroduodenoscopy with biopsy. PREOPERATIVE DIAGNOSIS: Longstanding history of GERD. IV sedation per anesthesia. PROCEDURE: After informed consent was obtained, the patient was brought into the endoscopy unit. IV sedation was administered by Anesthesia under continuous monitoring. Initially the Olympus GIF-140 video endoscope was inserted into the mouth. Esophagus intubated without any difficulty. It was gradually advanced into the stomach and duodenum and carefully examined. The bulb and the second part of the duodenum appeared normal. The scope at this time was withdrawn to the stomach, adequately insufflated with air, and upon careful examination, mucosa of the antrum, appeared normal. The distal body of the stomach there were linear erosions identified and biopsies were done from this area. Rest of the body, cardia and the fundus appeared normal. The scope was then withdrawn in to the esophagus. The GE junction was located at 41 cm from the incisors. The GE junction appeared slightly irregular but there was no evidence of esophagitis or Lozada's esophagus. The rest of the esophagus appeared normal. There were no erosions or ulcerations seen and the patient tolerated the procedure well. IMPRESSION: 1. Linear erosions in the distal body of the stomach status post biopsies. 2. Irregular GE junction but no evidence of esophagitis or Lozada's. RECOMMENDATIONS: The findings of this examination were discussed with the patient as well as his family. Follow-up with biopsy results. He was advised to continue with omeprazole 20 mg daily and follow antireflux measures.
[2024-07-03 12:57] VITALS: BP 164/94; PULSE 66
== END ==
LOC: ORWHC2ENDO 10:39
PROVIDERS: ATTEND Internal Medicine Gastroenterology
DX: K29.70 Gastritis, unspecified, without bleeding (principal); K21.9 Gastro-esophageal reflux disease without esophagitis; I10 Essential (primary) hypertension; E78.5 Hyperlipidemia, unspecified; E11.9 Type 2 diabetes mellitus without complications; E03.9 Hypothyroidism, unspecified; N40.0 Benign prostatic hyperplasia without lower urinary tract symptoms; F32.A Depression, unspecified; Z87.891 Personal history of nicotine dependence; Z79.890 Hormone replacement therapy; Z79.899 Other long term (current) drug therapy
CPT/HCPCS: 88305; 88342; 43239; J2704; J2003